=== PATIENT | male | born 1955 | race Caucasian/White ===

== ENCOUNTER 2021-03-24 10:07 | Emergency (ER) | payer SELFPAY ==
[~2021-03-24] VITALS: Ht 172.7 cm; Wt 80.9 kg
[2021-03-24 10:16] VITALS: TEMP 98.5
[2021-03-24] MEDS ORDERED: MOBIC 7.5MG7.5 MG PO (11:28)
[2021-03-24 11:44] VITALS: BP 141/79; PULSE 62
== END 2021-03-24 11:45 | disposition home or self-care (01) ==
LOC: COL.ER 10:07
DX: M77.32 Calcaneal spur, left foot (principal); M72.2 Plantar fascial fibromatosis; E11.9 Type 2 diabetes mellitus without complications
CPT/HCPCS: J1885